=== PATIENT | female | born 1985 | race Caucasian/White ===

== ENCOUNTER 2018-06-05 09:30 | Day surgery (SDC) | payer BC, OTHER ==
[~2018-06-05 09:30] MED LIST: Lidocaine 1%* 5 ML VIAL ONE; Misoprostol TAB* 200 MCG ONE
[2018-06-05 10:30] LABS: ABS Basophils 0 10^3/ul (0-0.2); ABS Eosinophils 0.1 10^3/ul (0-0.6); ABS Lymphocytes 1.8 10^3/ul (1.0-4.8); ABS Monocytes 0.3 10^3/ul (0-0.8); ABS Nucleated RBC 0 10^3/ul; Eosinophil % 1.7 % (0-6); Hematocrit 37 % (35-47); Hemoglobin 12.9 g/dl (12.0-16.0); Lymphocyte % 28.8 % (25-47); Mean Corpuscular HGB Conc 35 g/dl (31-36); Mean Corpuscular Hemoglobin 30 pg (27-31); Mean Corpuscular Volume 87 fL (80-97); Mean Platelet Volume 9.9 um3 (7.4-10.4); Nucleated Red Blood Cells % 0.1; Platelet Count 208 10^3/ul (150-450); Red Blood Count 4.28 10^6/ul (4.00-5.40); Red Cell Distribution Width 13 % (10.5-15); White Blood Count 6.4 10^3/ul (3.5-10.8)
[2018-06-05] MEDS ORDERED: fentaNYL* 50 MCG/ML 2 ML VIAL (100 MCG VIAL) ONE (10:35)
[2018-06-05] MEDS ORDERED: Midazolam* 1 MG/ML 5 ML VIAL (5 MG) ONE (10:35)
[2018-06-05] MEDS ORDERED: Propofol* 10 MG/ML 20 ML BTL IV PUSH ONE (11:21)
[2018-06-05] MEDS ORDERED: Ketorolac INJ* 30 MG/ML 1 ML VIAL ONE (11:21)
[2018-06-05] MEDS ORDERED: Naloxone* 0.4 MG/ML 1 ML VIAL IV PRN (11:30)
[2018-06-05] MEDS ORDERED: DOXYcycline CAP(*) 100 MG PO ONE (12:00)
[2018-06-05 12:30] VITALS: BP 106/67
--- NOTE | 2018-06-06 03:36 | OP ---
OPERATIVE REPORT: DATE OF OPERATION: 06/05/18 DATE OF : 85 SURGEON: Candice Lazaro MD ANESTHESIA: Sedation with paracervical block. PRE-OP DIAGNOSIS: Missed at 8-5/7 weeks. POST-OP DIAGNOSIS: Missed at 8-5/7 weeks. OPERATIVE PROCEDURE: Dilation, evacuation, and curettage. ESTIMATED BLOOD LOSS: 150 cc. URINE OUTPUT: 100 cc of clear yellow urine. FLUIDS: 300 cc of crystalloid. FINDINGS: Revealed intrauterine contents consistent with intrauterine , complete evacuation of uterus undertaken. COMPLICATIONS: None apparent. DISPOSITION: Stable to recovery room. DESCRIPTION OF PROCEDURE: The patient was placed in the operating room and placed in [facility] stirrups. The perineum and vagina were prepped and draped in a sterile standard fashion. The pa tient was identified with universal protocol for correct procedure, patient and position. The self-c ath was inserted for drainage of 100 cc of clear yellow urine. Self-cath was removed. A sterile spe culum was inserted. The cervix was visualized and injected with 10 cc of 1% lidocaine. A clamp was placed in the anterior lip with a single tooth tenaculum and dilated to #11 Hegar dilator and the 10 mm curved suction curette was applied and evacuation of intrauterine contents was carried out in bridget dard fashion. A sharp curettage was performed confirming complete removal of intrauterine contents. Single-tooth tenaculum was removed. Sterile speculum removed. Cytotec 800 mcg was placed to decrea se any bleeding postprocedure. The patient was then taken to the recovery room in stable condition. All sponge, needle, instrument, blade counts were correct throughout the case. The patient tolerate d the procedure well. [id number]/[facility] #: [id number]
== END 2018-06-05 12:45 | disposition home or self-care (01) ==
LOC: OR 09:30
PROVIDERS: ATTEND Obstetrics & Gynecology
DX: O02.1 Missed abortion (principal)
CPT/HCPCS: 36415; 85025; 86850; 86900; 86901; 88305; A9270-GY; J1885; J2250; J2704; J3010